=== PATIENT | male | born 1995 | race Caucasian/White ===

== ENCOUNTER 2016-03-26 03:36 | Emergency (ER) | payer OTHER ==
[~2016-03-26] VITALS: Ht 177.8 cm; Wt 117.9 kg
[2016-03-26] MEDS ORDERED: ESTR1TAB24 PO (03:50)
[2016-03-26] MEDS ORDERED: LISI10TA2 PO (03:50)
[2016-03-26] MEDS ORDERED: SPIR100T PO (03:50)
[2016-03-26 04:05] LABS: BASOPHILS % (AUTO) 0 % (0-10); EOSINOPHILS # (AUTO) 0.3 10^3/uL (0.0-0.3); EOSINOPHILS % (AUTO) 2 % (0-10); LYMPHOCYTES # (AUTO) 5.3 X 10^3 (1.0-4.0); LYMPHOCYTES % (AUTO) 44 % (12-44); MEAN CORPUSCULAR HEMOGLOBIN 30 PG (25-34); MEAN CORPUSCULAR HGB CONC 34 G/DL (32-36); MEAN CORPUSCULAR VOLUME 88 FL (80-99); MEAN PLATELET VOLUME 11.1 FL (7.4-10.4); MONOCYTES # (AUTO) 1.1 X 10^3 (0.0-1.0); MONOCYTES % (AUTO) 9 % (0-12); NEUTROPHILS # (AUTO) 5.5 X 10^3 (1.8-7.8); NEUTROPHILS % (AUTO) 45 % (42-75); PLATELET COUNT 335 10^3/uL (130-400); RED BLOOD COUNT 4.63 10^6/uL (4.35-5.85); RED CELL DISTRIBUTION WIDTH 12.9 % (10.0-14.5); WHITE BLOOD COUNT 12.1 10^3/uL (4.3-11.0)
[2016-03-26] MEDS ORDERED: NS IV 1000 ML 1,000 ML IV ONE (04:15)
[2016-03-26 04:31] LABS: ALANINE AMINOTRANSFERASE 31 U/L (0-55); ALBUMIN 4.7 G/DL (3.2-4.5); ANION GAP 14 MMOL/L (5-14); ASPARTATE AMINO TRANSFERASE 23 U/L (5-34); BILIRUBIN,TOTAL 0.5 MG/DL (0.1-1.0); BLOOD UREA NITROGEN 10 MG/DL (7-18); BUN/CREATININE RATIO 16; CALCIUM 9.2 MG/DL (8.5-10.1); CARBON DIOXIDE 18 MMOL/L (21-32); CHLORIDE 104 MMOL/L (98-107); CREATININE SERUM 0.61 MG/DL (0.60-1.30); GFR ESTIMATED > 60; GLUCOSE 95 MG/DL (70-105); MAGNESIUM 2.4 MG/DL (1.8-2.4); POTASSIUM 3.9 MMOL/L (3.6-5.0); SODIUM 136 MMOL/L (135-145); TOTAL PROTEIN 7.2 G/DL (6.4-8.2)
[2016-03-26 04:32] LABS: ACETAMINOPHEN < 10 UG/ML (10-30); ALCOHOL < 10 MG/DL (<10)
[2016-03-26 04:34] LABS: BILIRUBIN,URINE NEGATIVE (NEGATIVE); KETONES,URINE NEGATIVE (NEGATIVE); LEUKOCYTE ESTERASE ,URINE NEGATIVE (NEGATIVE); NITRITE,URINE NEGATIVE (NEGATIVE); PH,URINE 7 (5-9); PROTEIN,URINE NEGATIVE (NEGATIVE); UROBILINOGEN,URINE NORMAL (NORMAL)
[2016-03-26 04:50] LABS: SQUAMOUS EPITHELIAL CELL,UR RARE /HPF
--- NOTE | 2016-03-26 05:14 | ED Neurological Problem ---
General Chief Complaint: Neurological Problems Stated Complaint: POSS STROKE,NUMBNESS Nursing Triage Note: pt reports sudden onset slurred speech et numbness moving right to left during sexual intercourse. Nursing Sepsis Screen: No Definite Risk Source: patient, other Exam Limitations: no limitations History of Present Illness Time seen by provider: 03:40 Initial Comments This 20-year-old male presents to the emergency room with complaints of sudden onset of slurred speech and right arm paresthesias that radiated into the chest , to left chest, then to left arm. Symptoms started about 30 minutes prior to arrival. Symptoms started while engaged in sexual activity with his partner. Patient reports he has been having headaches upon standing recently. He reports drinking 8 beers today but denies any drug use. He is alert and oriented except he has one month off on the date. Mentation seems sluggish. Patient sees Dr. Rizzo in [place]. Allergies and Home Medications Allergies Coded Allergies: No Known Drug Allergies (Unverified , 03/26/16) Home Medications Estradiol 1 Mg Tablet 1 MG PO DAILY (Reported) Lisinopril 10 Mg Tablet 10 MG PO DAILY (Reported) Spironolactone 100 Mg Tablet 100 MG PO DAILY (Reported) Constitutional: no symptoms reported Eyes: No Symptoms Reported Ears, Nose, Mouth, Throat: no symptoms reported Respiratory: no symptoms reported Cardiovascular: no symptoms reported Gastrointestinal: no symptoms reported Genitourinary: no symptoms reported Musculoskeletal: no symptoms reported Skin: no symptoms reported Psychiatric/Neurological: See HPI Endocrine: No Symptoms Reported Past Nwphjoy-Dpnezw-Hxajww Hx Patient Social History Alcohol Use: Regular Use Recreational Drug Use: No Smoking Status: Never a Smoker Recent Foreign Travel: No Contact w/Someone Who Travel: No Recent Infectious Disease Expo: No Recent Hopitalizations: No Physical Abuse Screen: No Sexual Abuse: No Immunizations Up To Date Date of Influenza Vaccine: Jan 21, 2016 Seasonal Allergies Seasonal Allergies: No Surgeries HX Surgeries: Yes (right ankle) Surgeries: Orthopedic (Charcot foot), Tonsillectomy Respiratory Hx Respiratory Disorders: No Cardiovascular Hx Cardiac Disorders: Yes Cardiac Disorders: Hypertension Neurological Hx Neurological Disorders: No Reproductive System Hx Reproductive Disorders: No Genitourinary Hx Genitourinary Disorders: No Gastrointestinal Hx Gastrointestinal Disorders: No Musculoskeletal Hx Musculoskeletal Disorders: No Endocrine Hx Endocrine Disorders: No HEENT HX ENT Disorders: No Cancer Hx Cancer: No Psychosocial Hx Psychiatric Problems: No Family Medical History Significant Family History: Hypertension Physical Exam Vital Signs Capillary Refill : Less Than 3 Seconds General Appearance: WD/WN no apparent distress HEENT: PERRL/EOMI normal ENT inspection pharynx normal Neck: normal inspection Respiratory: lungs clear normal breath sounds no respiratory distress no accessory muscle use Cardiovascular: regular rate, rhythm no edema no murmur Gastrointestinal: normal bowel sounds non tender soft Back: normal inspection Extremities: normal inspection no pedal edema Neurologic/Psychiatric: heel sorter II-XII nml as tested no motor/sensory deficits alert normal mood/affect other (Disoriented to month, mentation slightly sluggish) Crainal Nerves: normal hearing normal speech PERRL Coordination/Gait: normal finger to nose normal gait Motor/Sensory: no motor deficit no sensory deficit Skin: normal color warm/dry Stroke NIH Stroke Scale Assessment Select: Initial Level of Consciousness: 0=Alert Level of Consciousness-Questio: 1=Answers one question LOC Commands: 0=Performs both tasks Gaze: 0=Normal Visual Ledezma: 0=No visual loss Facial Movement (Facial Paresi: 0=Normal symmetrical mnt Motor Function-Arms Right: 0=No drift Motor Function-Arms Left: 0=No drift Motor Function-Legs Right: 0=No drift Motor Function-Legs Left: 0=No drift Limb Ataxia: 0=Absent Sensory: 0=Normal:no loss Best Language: 0=No aphasia Dysarthria: 0=Normal Extinction & Inattention: 0=No abnormality NIH Stroke Scale Score: 1 Progress/Results/Core Measures Results/Orders Lab Results Laboratory Tests Test 03/26/16 03:48 03/26/16 03:55 03/26/16 04:27 Range/Units Glucometer 96 70-110 MG/DL Acetaminophen Level < 10 L 10-30 UG/ML Alanine Aminotransferase (ALT/SGPT) 31 0-55 U/L Albumin 4.7 H 3.2-4.5 G/DL Alkaline Phosphatase 58 40-136 U/L Anion Gap 14 5-14 MMOL/L Aspartate Amino Transf (AST/SGOT) 23 5-34 U/L BUN/Creatinine Ratio 16 Basophils # (Auto) 0.0 0.0-0.1 10^3/uL Basophils (%) (Auto) 0 0-10 % Blood Urea Nitrogen 10 7-18 MG/DL Calcium Level 9.2 8.5-10.1 MG/DL Carbon Dioxide Level 18 L 21-32 MMOL/L Chloride Level 104 98-107 MMOL/L Creatinine 0.61 0.60-1.30 MG/DL Eosinophils # (Auto) 0.3 0.0-0.3 10^3/uL Eosinophils (%) (Auto) 2 0-10 % Estimat Glomerular Filtration Rate > 60 Glucose Level 95 70-105 MG/DL Hematocrit 41 40-54 % Hemoglobin 13.8 13.3-17.7 G/DL Lymphocytes # (Auto) 5.3 H 1.0-4.0 X 10^3 Lymphocytes (%) (Auto) 44 12-44 % Magnesium Level 2.4 1.8-2.4 MG/DL Mean Corpuscular Hemoglobin 30 25-34 PG Mean Corpuscular Hemoglobin Concent 34 32-36 G/DL Mean Corpuscular Volume 88 80-99 FL Mean Platelet Volume 11.1 H 7.4-10.4 FL Monocytes # (Auto) 1.1 H 0.0-1.0 X 10^3 Monocytes (%) (Auto) 9 0-12 % Neutrophils # (Auto) 5.5 1.8-7.8 X 10^3 Neutrophils (%) (Auto) 45 42-75 % Platelet Count 335 130-400 10^3/uL Potassium Level 3.9 3.6-5.0 MMOL/L Red Blood Count 4.63 4.35-5.85 10^6/uL Red Cell Distribution Width 12.9 10.0-14.5 % Salicylates Level < 5.0 L 5.0-20.0 MG/DL Serum Alcohol < 10 <10 MG/DL Sodium Level 136 135-145 MMOL/L TSH [place] Testing 4.77 0.35-4.94 UIU/ML Total Bilirubin 0.5 0.1-1.0 MG/DL Total Protein 7.2 6.4-8.2 G/DL White Blood Count 12.1 H 4.3-11.0 10^3/uL Ur Tricyclic Antidepressants Screen NEGATIVE NEGATIVE Urine Amphetamines Screen NEGATIVE NEGATIVE Urine Bacteria NEGATIVE /HPF Urine Barbiturates Screen NEGATIVE NEGATIVE Urine Benzodiazepines Screen NEGATIVE NEGATIVE Urine Bilirubin NEGATIVE NEGATIVE Urine Cannabinoids Screen NEGATIVE NEGATIVE Urine Casts NONE /LPF Urine Clarity CLEAR Urine Cocaine Screen NEGATIVE NEGATIVE Urine Color YELLOW Urine Crystals NONE /LPF Urine Culture Indicated NO Urine Glucose (UA) NEGATIVE NEGATIVE Urine Ketones NEGATIVE NEGATIVE Urine Leukocyte Esterase NEGATIVE NEGATIVE Urine Methadone Screen NEGATIVE NEGATIVE Urine Methamphetamines Screen NEGATIVE NEGATIVE Urine Mucus NEGATIVE /LPF Urine Nitrite NEGATIVE NEGATIVE Urine Opiates Screen NEGATIVE NEGATIVE Urine Oxycodone Screen NEGATIVE NEGATIVE Urine Phencyclidine Screen NEGATIVE NEGATIVE Urine Propoxyphene Screen NEGATIVE NEGATIVE Urine Protein NEGATIVE NEGATIVE Urine RBC NONE /HPF Urine RBC (Auto) NEGATIVE NEGATIVE Urine Specific [place] 1.010 L 1.016-1.022 Urine Squamous Epithelial Cells RARE /HPF Urine Urobilinogen NORMAL NORMAL MG/DL Urine WBC NONE /HPF Urine pH 7 5-9 My Orders Orders-CHEN ALFONSO MD Acetaminophen (03/26/16 03:49) Alcohol (03/26/16 03:49) Cbc With Automated Diff (03/26/16 03:49) Comprehensive Metabolic Panel (03/26/16 03:49) Drug Screen Stat (Urine) (03/26/16 03:49) Magnesium (03/26/16 03:49) Thyroid Analyzer (03/26/16 03:49) Ua Culture If Indicated (03/26/16 03:49) Accucheck Stat ONCE (03/26/16 03:49) Saline Lock/Iv-Start (03/26/16 03:49) Ekg Tracing (03/26/16 03:49) Monitor-Rhythm Ecg Trace Only (03/26/16 03:49) Ns Iv 1000 Ml (Sodium Chloride 0.9%) (03/26/16 04:15) Salicylate (03/26/16 04:26) Ct Head Wo (03/26/16 05:09) Ketorolac Injection (Toradol Injection) (03/26/16 06:00) Diltiazem Cd 24 Hr Capsule (Cardizem Cd (03/27/16 07:27) Digoxin Tablet (Lanoxin Tablet) (03/27/16 07:27) Medications Given in ED Vital Signs/I&O Blood Pressure Mean: 112 Point of Care Testing Finger Stick Blood Glucose: 96 Blood Glucose Action Taken: report to Dr Vicente Note : Time: 05:10 Progress Note Patient suddenly is very crisp in his mentation and speech. He is fully alert and oriented. He describes having headaches for the past 5 days. He had a rebound of this headache just prior to the neurologic symptoms. The neurologic symptoms are marching in nature and started on the right a move to the left. This could be related to atypical migraine but would not be consistent with stroke. Because he has no history of prior headaches, CT of the head was ordered. ECG Initial ECG Impression Date: Mar 26, 2016 Initial ECG Impression Time: 03:43 Initial ECG Rate: 108 Initial ECG Rhythm: S.Tach Initial ECG Intervals: Normal Comment Sinus tachycardia with no ST elevation or depression. No abnormal intervals or axis deviation. Diagnostic Imaging Diagonstic Imaging: CT Plain Films/CT/US/NM/MRI: head Comments CT head viewed by me and report reviewed. No acute abnormalities. Departure Impression Impression: Primary Impression: Atypical migraine Additional Impressions: Paresthesias Confusion Disposition: 01 HOME, SELF-CARE Condition: Improved Departure-Patient Inst. Decision time for Depature: 05:53 Referrals: NO,LOCAL PHYSICIAN (PCP) Primary Care Physician Patient Instructions: Migraine Headache (DC) Add. Discharge Instructions: When you return home, rest in a quiet dark environment. You may take ibuprofen up to 800 mg every 8 hours as needed for pain. Add Tylenol for additional pain control. Return to care if symptoms worsen. Follow up with your primary care provider as soon as possible. All discharge instructions reviewed with patient and/or family. Voiced understanding. CHEN ALFONSO MD Mar 26, 2016 05:13
[2016-03-26 06:00] VITALS: BP 142/97
[2016-03-26] MEDS ORDERED: KETOROLAC 30 MG/ML VIAL IVP ONE (06:00)
--- NOTE | 2016-03-26 07:24 | Diagnostic Imaging Report ---
PROCEDURE: CT head without contrast. TECHNIQUE: Multiple contiguous axial images were obtained through the brain without the use of intravenous contrast. INDICATION: Right-sided numbness. COMPARISON: None FINDINGS: There is no midline shift or mass effect. The ventricles and sulci are unremarkable. No evidence for acute intracranial hemorrhage, abnormal extra-axial fluid collections or cerebral edema is present. The basilar cisterns are unremarkable. The visualized paranasal sinuses and mastoid air cells are clear. The bony calvarium is intact. IMPRESSION: Negative appearing noncontrast CT of the head. Agreement with the preliminary interpretation. Dictated by: Dictated on workstation # [id number]
[2016-03-27] MEDS ORDERED: DIGOXIN 0.25 MG (LANOXIN) TAB ONE (07:27)
[2016-03-27] MEDS ORDERED: DILTIAZEM 240 MG (CARDIZEM CD) CAP PO ONE (07:27)
== END 2016-03-26 06:00 | disposition home or self-care (01) ==
LOC: ER 03:39
DX: G43.909 Migraine, unspecified, not intractable, without status migrainosus (principal); R20.2 Paresthesia of skin; R41.0 Disorientation, unspecified
CPT/HCPCS: 36415; 70450; 80053; 80306; 80320; 80329; 81000; 82962; 83735; 84443; 85025; 93005; 93041; 96361; 96374

== ENCOUNTER 2017-05-25 10:20 | Emergency (ER) | payer OTHER ==
[~2017-05-25] VITALS: Ht 175.3 cm; Wt 113.4 kg
[~2017-05-25 10:20] MED LIST: ESTR1TAB24 PO; LISI10TA2 PO; SPIR100T PO
--- NOTE | 2017-05-25 11:12 | ED Psychosocial ---
General Chief Complaint: Psych/Social Disorder Stated Complaint: AMS Nursing Triage Note: PT ARRIVED PER EMS, PROFESSOR CALLED HELP LINE FOR PT STATES HAS SUICIDAL IDEATION BUT WILL NOT TELL STAFF PLAN. , PT STATES HAS NOT SLEPT IN 5 DAYS, HAS PANICK ATTACKS PT IS TRANSGENDER, PT WILL ANSWER SOME QUESTIONS ASKED BY STAFF. PT STATES TO STAFF "I THINK I AM INSANE." PT HAS HX OF CUTTING SELF. PT FIANCE WITH PT AT THIS X PER PT REQUEST Source: patient, family, police Exam Limitations: clinical condition History of Present Illness Date Seen by Provider: May 25, 2017 Time Seen by Provider: 10:30 Initial Comments This 21 year old young man who identifies as a woman named "Harlan" presents to the emergency room via EMS accompanied by police for reasons of suicidal ideation. She is not very forthcoming with history and states "I don't know" as the answer to most of my questions. According to EMS, police, and patient's male fijose a, patient has had expressions of suicidal ideation and has not slept well for 5-7 days. She has been taking melatonin without success. She admits to smoking marijuana and will not clarify if she has taken other substances. Antonietta reports patient woke him at 08:00 yesterday and was "freaking out". She was having racing thoughts and couldn't eat because of loss of appetite. When asked about how long she had been experiencing suicidal ideation she responded "all of my life". She admits to having plan and intention for suicide last night but will not clarify. She would not make eye contact during most of the encounter. She seems to be disoriented and has confused conversation sometimes when answering questions. Allergies and Home Medications Allergies Coded Allergies: No Known Drug Allergies (Unverified , 03/26/16) Home Medications Estradiol 1 Mg Tablet, 1 MG PO DAILY, (Reported) Spironolactone 100 Mg Tablet, 100 MG PO DAILY, (Reported) Patient Home Medication List Home Medication List Reviewed: Yes Constitutional: no symptoms reported EENTM: no symptoms reported Respiratory: no symptoms reported Cardiovascular: no symptoms reported Gastrointestinal: see HPI Genitourinary: no symptoms reported Musculoskeletal: no symptoms reported Skin: no symptoms reported Psychiatric/Neurological: See HPI Past Zapfhoi-Wcbuly-Mvnjee Hx Patient Social History Alcohol Beverage of Choice: Beer Recreational Drug Use: Yes Drug of Choice: Marijuana Recent Foreign Travel: No Contact w/Someone Who Travel: No Recent Infectious Disease Expo: No Recent Hopitalizations: No Immunizations Up To Date Date of Influenza Vaccine: Jan 21, 2016 Seasonal Allergies Seasonal Allergies: No Surgeries History of Surgeries: Yes Surgeries: Orthopedic (reconstructive surgery for Charcot foot), Tonsillectomy Respiratory History of Respiratory Disorde: No Cardiovascular History of Cardiac Disorders: Yes Cardiac Disorders: Hypertension Neurological History of Neurological Disord: No Reproductive System Hx Reproductive Disorders: No Gastrointestinal History of Gastrointestinal Di: No Musculoskeletal History of Musculoskeletal Dis: No Endocrine History of Endocrine Disorders: No HEENT History of HEENT Disorders: No Cancer History of Cancer: No Psychosocial History of Psychiatric Problem: Yes (self-harm cutting behaviors) Behavioral Health Disorders: Depression Family Medical History Significant Family History: Hypertension Physical Exam Vital Signs Vital Signs - First Documented 05/25/17 10:43 Temp 97.9 Pulse 91 Resp 18 B/P (MAP) 161/100 (120) Pulse Ox 99 Capillary Refill : Less Than 3 Seconds General Appearance: WD/WN, no apparent distress HEENT: PERRL/EOMI, normal ENT inspection, pharynx normal Neck: normal inspection Respiratory: lungs clear, normal breath sounds, no respiratory distress, no accessory muscle use Cardiovascular: regular rate, rhythm, no edema, no murmur Gastrointestinal: normal bowel sounds, non tender, soft Extremities: normal inspection, no pedal edema, other (scars from cutting on the left upper extremity) Neurologic/Psychiatric: executive administrator II-XII nml as tested, no motor/sensory deficits, alert, other (depressed mood, flat affect, not cooperative with answering questions) Appearance/Memory: impaired recent memory, impaired remote memory Behavior/Eye Contact: avoids eye contact, refused to answer, uncooperative Thoughts/Hallucinations: no apparent hallucination Skin: normal color, warm/dry Progress/Results/Core Measures Results/Orders Lab Results Laboratory Tests Test 05/25/17 11:57 05/25/17 13:14 Range/Units White Blood Count 14.0 H 4.3-11.0 10^3/uL Red Blood Count 4.73 4.35-5.85 10^6/uL Hemoglobin 13.9 13.3-17.7 G/DL Hematocrit 41 40-54 % Mean Corpuscular Volume 86 80-99 FL Mean Corpuscular Hemoglobin 29 25-34 PG Mean Corpuscular Hemoglobin Concent 34 32-36 G/DL Red Cell Distribution Width 12.9 10.0-14.5 % Platelet Count 340 130-400 10^3/uL Mean Platelet Volume 10.8 H 7.4-10.4 FL Neutrophils (%) (Auto) 85 H 42-75 % Lymphocytes (%) (Auto) 10 L 12-44 % Monocytes (%) (Auto) 6 0-12 % Eosinophils (%) (Auto) 0 0-10 % Basophils (%) (Auto) 0 0-10 % Neutrophils # (Auto) 11.9 H 1.8-7.8 X 10^3 Lymphocytes # (Auto) 1.4 1.0-4.0 X 10^3 Monocytes # (Auto) 0.8 0.0-1.0 X 10^3 Eosinophils # (Auto) 0.0 0.0-0.3 10^3/uL Basophils # (Auto) 0.0 0.0-0.1 10^3/uL Neutrophils % (Manual) 82 % Lymphocytes % (Manual) 12 % Monocytes % (Manual) 4 % Eosinophils % (Manual) 0 % Basophils % (Manual) 0 % Band Neutrophils 2 % Blood Morphology Comment NORMAL Sodium Level 136 135-145 MMOL/L Potassium Level 3.4 L 3.6-5.0 MMOL/L Chloride Level 103 98-107 MMOL/L Carbon Dioxide Level 19 L 21-32 MMOL/L Anion Gap 14 5-14 MMOL/L Blood Urea Nitrogen 5 L 7-18 MG/DL Creatinine 0.63 0.60-1.30 MG/DL Estimat Glomerular Filtration Rate > 60 BUN/Creatinine Ratio 8 Glucose Level 106 H 70-105 MG/DL Calcium Level 10.0 8.5-10.1 MG/DL Total Bilirubin 0.3 0.1-1.0 MG/DL Aspartate Amino Transf (AST/SGOT) 16 5-34 U/L Alanine Aminotransferase (ALT/SGPT) 24 0-55 U/L Alkaline Phosphatase 74 40-136 U/L C-Reactive Protein High Sensitivity 0.15 0.00-0.50 MG/DL Total Protein 7.9 6.4-8.2 GM/DL Albumin 5.0 H 3.2-4.5 GM/DL TSH Person Testing 0.89 0.35-4.94 UIU/ML Salicylates Level < 5.0 L 5.0-20.0 MG/DL Acetaminophen Level < 10 L 10-30 UG/ML Serum Alcohol < 10 <10 MG/DL Urine Color YELLOW Urine Clarity CLEAR Urine pH 7 5-9 Urine Specific [place] 1.010 L 1.016-1.022 Urine Protein 1+ H NEGATIVE Urine Glucose (UA) NEGATIVE NEGATIVE Urine Ketones 4+ H NEGATIVE Urine Nitrite NEGATIVE NEGATIVE Urine Bilirubin NEGATIVE NEGATIVE Urine Urobilinogen NORMAL NORMAL MG/DL Urine Leukocyte Esterase 1+ H NEGATIVE Urine RBC (Auto) 1+ H NEGATIVE Urine RBC RARE /HPF Urine WBC 2-5 /HPF Urine Squamous Epithelial Cells 2-5 /HPF Urine Crystals NONE /LPF Urine Bacteria TRACE /HPF Urine Casts NONE /LPF Urine Mucus SMALL H /LPF Urine Culture Indicated NO Urine Opiates Screen NEGATIVE NEGATIVE Urine Oxycodone Screen NEGATIVE NEGATIVE Urine Methadone Screen NEGATIVE NEGATIVE Urine Propoxyphene Screen NEGATIVE NEGATIVE Urine Barbiturates Screen NEGATIVE NEGATIVE Ur Tricyclic Antidepressants Screen NEGATIVE NEGATIVE Urine Phencyclidine Screen NEGATIVE NEGATIVE Urine Amphetamines Screen NEGATIVE NEGATIVE Urine Methamphetamines Screen NEGATIVE NEGATIVE Urine Benzodiazepines Screen NEGATIVE NEGATIVE Urine Cocaine Screen NEGATIVE NEGATIVE Urine Cannabinoids Screen POSITIVE H NEGATIVE My Orders Orders - CHEN ALFONSO MD Acetaminophen (05/25/17 11:03) Alcohol (05/25/17 11:03) Cbc With Automated Diff (05/25/17 11:03) Comprehensive Metabolic Panel (05/25/17 11:03) Drug Screen Stat (Urine) (05/25/17 11:03) Salicylate (05/25/17 11:03) Thyroid Analyzer (05/25/17 11:03) Ua Culture If Indicated (05/25/17 11:03) Manual Differential (05/25/17 11:57) General/Regular (05/25/17 Lunch) Hs C Reactive Protein (05/25/17 13:52) Vital Signs/I&O Vital Sign - Last 12Hours 05/25/17 05/25/17 10:43 15:45 Temp 97.9 Pulse 91 107 Resp 18 18 B/P (MAP) 161/100 (120) 136/86 (120) Pulse Ox 99 99 Blood Pressure Mean: 120 Progress Note : Time: 15:28 Progress Note Patient was seen and assessed by the county screener. Patient had expressed suicidal ideation with intent and plan last night. Patient denies suicidal ideation for the screener. Patient avoids answering questions for the screener and seems to have manipulative outbursts of crying and panic without actually producing tears. The screener did not feel patient meets criteria for inpatient admission and did not pose an immediate threat to self. She recommends outpatient follow-up. Patient's stories were inconsistent amongst providers and interactions with the same provider. For example patient stated she had not slept well for 5 days and then change the duration to 7 days and then 10 days and then 2 weeks. She then stated to the screener that she actually had been sleeping but only 3 or 4 hours per night. Departure Impression Impression: Primary Impression: Insomnia Qualified Codes: G47.00 - Insomnia, unspecified Additional Impressions: Depression Qualified Codes: F32.9 - Major depressive disorder, single episode, unspecified Leukocytosis Qualified Codes: D72.829 - Elevated white blood cell count, unspecified Disposition: 01 HOME, SELF-CARE Condition: Stable Departure-Patient Inst. Decision time for Depature: 15:27 Referrals: NO,LOCAL PHYSICIAN (PCP/Family) Primary Care Physician Patient Instructions: Insomnia Add. Discharge Instructions: Follow the plan as outlined by the screener. [facility]-up with the [facility] as soon as possible. Return to care or contact [phone] if symptoms worsen. For insomnia you may try Unisom purchased [id number]. All discharge instructions reviewed with patient and/or family. Voiced understanding. Copy Copies To 1: MIL ORR MD, JOSHUA T MD May 25, 2017 11:12
[2017-05-25 12:04] LABS: BASOPHILS % (AUTO) 0 % (0-10); EOSINOPHILS % (AUTO) 0 % (0-10); HEMATOCRIT 41 % (40-54); HEMOGLOBIN 13.9 G/DL (13.3-17.7); LYMPHOCYTES # (AUTO) 1.4 X 10^3 (1.0-4.0); LYMPHOCYTES % (AUTO) 10 % (12-44); MEAN CORPUSCULAR HEMOGLOBIN 29 PG (25-34); MEAN CORPUSCULAR HGB CONC 34 G/DL (32-36); MEAN CORPUSCULAR VOLUME 86 FL (80-99); MEAN PLATELET VOLUME 10.8 FL (7.4-10.4); MONOCYTES # (AUTO) 0.8 X 10^3 (0.0-1.0); MONOCYTES % (AUTO) 6 % (0-12); NEUTROPHILS # (AUTO) 11.9 X 10^3 (1.8-7.8); NEUTROPHILS % (AUTO) 85 % (42-75); PLATELET COUNT 340 10^3/uL (130-400); RED BLOOD COUNT 4.73 10^6/uL (4.35-5.85); RED CELL DISTRIBUTION WIDTH 12.9 % (10.0-14.5)
[2017-05-25 12:25] LABS: ALANINE AMINOTRANSFERASE 24 U/L (0-55); ALKALINE PHOSPHATASE 74 U/L (40-136); BILIRUBIN,TOTAL 0.3 MG/DL (0.1-1.0); BUN/CREATININE RATIO 8; CARBON DIOXIDE 19 MMOL/L (21-32); CHLORIDE 103 MMOL/L (98-107); CREATININE SERUM 0.63 MG/DL (0.60-1.30); GFR ESTIMATED > 60; GLUCOSE 106 MG/DL (70-105); POTASSIUM 3.4 MMOL/L (3.6-5.0); SALICYLATE < 5.0 MG/DL (5.0-20.0); SODIUM 136 MMOL/L (135-145); TOTAL PROTEIN 7.9 GM/DL (6.4-8.2)
[2017-05-25 12:27] LABS: ACETAMINOPHEN < 10 UG/ML (10-30)
[2017-05-25 12:28] LABS: BAND NEUTROPHILS 2 %; BASOPHILS % (MANUAL) 0 %; EOSINOPHILS % (MANUAL) 0 %; LYMPHOCYTES % (MANUAL) 12 %; MONOCYTES % (MANUAL) 4 %; NEUTROPHILS % (MANUAL) 82 %
[2017-05-25 12:29] LABS: RBC MORPH NORMAL
[2017-05-25 12:44] LABS: TSH (THYROID ANALYZER) 0.89 UIU/ML (0.35-4.94)
[2017-05-25 13:24] LABS: BILIRUBIN,URINE NEGATIVE (NEGATIVE); CLARITY,URINE CLEAR; COLOR,URINE YELLOW; GLUCOSE, URINE (UA) NEGATIVE (NEGATIVE); KETONES,URINE 4+ (NEGATIVE); LEUKOCYTE ESTERASE ,URINE 1+ (NEGATIVE); NITRITE,URINE NEGATIVE (NEGATIVE); PH,URINE 7 (5-9); PROTEIN,URINE 1+ (NEGATIVE); UROBILINOGEN,URINE NORMAL (NORMAL)
[2017-05-25 13:36] LABS: BACTERIA,URINE TRACE /HPF; BENZODIAZEPINES SCREEN URINE NEGATIVE (NEGATIVE); COCAINE SCREEN URINE NEGATIVE (NEGATIVE); RBC,URINE RARE /HPF
[2017-05-25 13:37] LABS: AMPHETAMINE SCREEN, URINE NEGATIVE (NEGATIVE); BARBITURATE SCREEN URINE NEGATIVE (NEGATIVE); CANNABINOID SCREEN, URINE POSITIVE (NEGATIVE); METHADONE STAT NEGATIVE (NEGATIVE); METHAMPHETAMINE SCREEN URINE S NEGATIVE (NEGATIVE); OPIATE SCREEN URINE NEGATIVE (NEGATIVE); OXYCODONE STAT NEGATIVE (NEGATIVE); PROPOXYPHENE STAT NEGATIVE (NEGATIVE); TRICYCLIC ANTIDEPRESSANTS SCRE NEGATIVE (NEGATIVE)
[2017-05-25 15:45] VITALS: BP 136/86
== END 2017-05-25 15:45 | disposition home or self-care (01) ==
LOC: EDUNIT# 10:24 → ER 10:25
DX: G47.00 Insomnia, unspecified (principal); F32.9 Major depressive disorder, single episode, unspecified; D72.829 Elevated white blood cell count, unspecified; I10 Essential (primary) hypertension; F12.10 Cannabis abuse, uncomplicated; Z90.89 Acquired absence of other organs
CPT/HCPCS: 36415; 80053; 80306; 80320; 80329; 81000; 84443; 85007; 85027; 86141; 99284